=== PATIENT | male | born 1975 | race African-American/Black ===

== ENCOUNTER 2025-02-05 09:48 | Emergency (ER) | payer OTHER ==
[2025-02-05] MEDS ORDERED: Lidocaine 1% (PF) 30 ML VIAL ONE (10:03)
[2025-02-05] MEDS ORDERED: Bacitracin 1 PK ONE (11:03)
== END 2025-02-05 11:32 ==
LOC: NAV ERS 09:48 → EEVIPCON 09:48 → NAV ERS 11:32
DX: S91.312A Laceration without foreign body, left foot, initial encounter (principal); I11.0 Hypertensive heart disease with heart failure; I50.9 Heart failure, unspecified; I48.91 Unspecified atrial fibrillation; W26.8XXA Contact with other sharp object(s), not elsewhere classified, initial encounter; Z23 Encounter for immunization; Z79.01 Long term (current) use of anticoagulants; Z79.82 Long term (current) use of aspirin; Z79.899 Other long term (current) drug therapy
CPT/HCPCS: 12002; 90471; 90715; J2003